=== PATIENT | female | born 1930 | race Caucasian/White ===

== ENCOUNTER 2017-08-01 11:16 | Inpatient (IN) | payer MEDICARE, BC | END 2017-08-04 17:38 | disposition home or self-care (01) | DRG 543 | LOC: D.ER 11:16 → D.MS 18:52 | PROVIDERS: ADMIT Emergency Medicine | DX: M48.58XA Collapsed vertebra, not elsewhere classified, sacral and sacrococcygeal region, initial encounter for fracture (principal); G24.09 Other drug induced dystonia; R53.1 Weakness; M54.16 Radiculopathy, lumbar region; M81.0 Age-related osteoporosis without current pathological fracture; T45.0X5A Adverse effect of antiallergic and antiemetic drugs, initial encounter; M54.31 Sciatica, right side; X58.XXXA Exposure to other specified factors, initial encounter; Z90.2 Acquired absence of lung [part of] ==

== ENCOUNTER 2019-02-09 20:51 | Inpatient (IN) | payer MEDICARE, BC ==
[~2019-02-09] VITALS: Ht 154.9 cm; Wt 54.5 kg
[~2019-02-09 20:51] MED LIST: ASPIRIN 81 MG E81 MG PO; CALCI-CHEW1 TAB.CHEW PO; CALTRATE+D3 PL1 EACH PO; LISINOPRIL10 MG PO; MAXZIDE-25 MG T1 TAB PO; MIRALAX17 GM PO; MULTIPLE VITAMI1 TA1 PO; OMEGA 3 FISH OI1 CAP PO; PRESERVISION AR1 CAP PO; TYLENOL W/CODEI1 TAB PO
[2019-02-09 21:27] LABS: BASOPHILS 0.4 % (0-2); EOSINOPHILS 3.3 % (0-7); HEMATOCRIT 31.3 % (36.0-48.0); HEMOGLOBIN 10.8 g/dL (12-16); IMMATURE GRANULOCYTES 0.4 % (0-5); LYMPHOCYTES 24.2 % (15-50); MCH 33.3 pg (26.0-34.0); MCHC 34.5 g/dL (31.0-37.0); MCV 96.6 fL (80.0-100.0); MONOCYTES 13.2 % (2-11); NEUTROPHILS 58.5 % (40-80); PLATELET COUNT 153 10x3/uL (130-400); RBC 3.24 10x6/uL (4.00-5.40); RDW 14.8 % (11.5-14.5); WBC 5.1 10x3/uL (4.8-10.8)
[2019-02-09 21:40] LABS: APTT 26.1 SECONDS (22.8-39.4); INR 1.02 (0.85-1.17); PROTIME 12.9 SECONDS (11.6-15.0)
[2019-02-09 21:45] LABS: ALBUMIN 3.1 g/dL (3.4-5.0); ALKALINE PHOSPHATASE 47 U/L (46-116); ALT (SGPT) 21 U/L (10-68); BILIRUBIN - TOTAL 0.39 mg/dL (0.2-1.3); CALC OSMOLALITY 266 mosm/kg (275-300); CALCIUM 8.8 mg/dL (8.5-10.1); CHLORIDE - SERUM 96 mmol/L (98-107); CREATININE - SERUM 0.9 mg/dL (0.6-1.3); GLUCOSE 124 mg/dL (74-106); POTASSIUM - SERUM 4.4 mmol/L (3.5-5.1); PROTEIN - SERUM 6.8 g/dL (6.4-8.2); SODIUM 131 mmol/L (136-145); UREA NITROGEN 22 mg/dL (7-18); eGFR NON AFRICAN AMERICAN 62 mL/min (90-120)
[2019-02-09 21:56] LABS: CKMB 2.2 U/L (0.0-3.6); CREATINE KINASE 108 UL (21-215); MAGNESIUM - SERUM 1.9 mg/dL (1.8-2.4); TROPONIN-I 0.018 ng/mL (0.000-0.060)
[2019-02-09 22:18] VITALS: BP 165/85
[2019-02-10] VITALS (7 sets, daily range): BP systolic 137–160; BP diastolic 67–99; Ht 154.9 cm; Wt 54.5 kg
--- NOTE | 2019-02-10 00:10 | NUR ---
PT TO FLOOR VIA BED AND ER STAFF MEMBER.
--- NOTE | 2019-02-10 07:41 | NUR ---
AM ROUNDING DONE WITH PATIENT BEING NPO UNTIL SEEN PER CARDIOLOGY. DENIES ANY CHEST PAIN OR DISCOMFORT AT THIS TIME. ON HEART MONITOR SHOWING SR, HR 78. ON ROOM AIR. LEFT AC PIV SEEN SALINE LOCK, ORANGE SWAB CAP IN USE. PATIENT HAS A SOFT NECK COLLAR IN PLACE FOR CHRONIC BACK ISSUES.
--- NOTE | 2019-02-10 13:58 | NUR ---
PATIENT IS WANTING TO KNOW WHEN THE DOCTORS WILL BE AROUND. I REMINDED HER THAT THE NURSE PARTS COUNTER SPECIALIST FOR CARDIOLOGY CAME THOUGH. SHE REMEMBERS THIS. AWAITING DR NGUYEN TO MAKE ROUNDS.
--- NOTE | 2019-02-10 16:24 | NUR ---
REFUSES SCD PATIENT IS AMBULATORY TO RESTROOM AND IN ROOM.
--- NOTE | 2019-02-10 19:30 | NUR ---
RECEIVED REPORT, WILL ASSUME CARE OF PT, DENIES ANY NEEDS AT THIS TIME, BED IS LOW, SRX2, CALL LIGHT IN REACH, WILL CONTINUE PLAN OF CARE
--- NOTE | 2019-02-10 20:51 | NUR ---
REFUSED FISH OIL, SAYS SAID WILL TAKE IT AT HOME, WHEN DISCHARGED
--- NOTE | 2019-02-11 00:19 | NUR ---
I have reviewed this patient and I concur with the Shift Assessment completed by the Licensed Practical Nurse today this shift.
--- NOTE | 2019-02-11 01:44 | NUR ---
ANSWER CALL LIGHT, PT REQUESTING ANOTHER BLANKET, PROVIDED
[2019-02-11 04:23] VITALS: BP 154/77
[2019-02-11 04:33] LABS: BASOPHILS 0.6 % (0-2); EOSINOPHILS 5.4 % (0-7); HEMATOCRIT 29.7 % (36.0-48.0); HEMOGLOBIN 10.3 g/dL (12-16); IMMATURE GRANULOCYTES 0.2 % (0-5); LYMPHOCYTES 26.7 % (15-50); MCH 33.4 pg (26.0-34.0); MCHC 34.7 g/dL (31.0-37.0); MCV 96.4 fL (80.0-100.0); MEAN PLATELET VOLUME 10.5 fL (7.4-10.4); MONOCYTES 16.5 % (2-11); NEUTROPHILS 50.6 % (40-80); PLATELET COUNT 159 10x3/uL (130-400); RBC 3.08 10x6/uL (4.00-5.40); WBC 4.8 10x3/uL (4.8-10.8)
[2019-02-11 04:51] LABS: ALBUMIN 2.9 g/dL (3.4-5.0); ANION GAP 8.4 mmol/L (8-16); BILIRUBIN - TOTAL 0.62 mg/dL (0.2-1.3); CALCIUM 8.5 mg/dL (8.5-10.1); CARBON DIOXIDE 30.2 mmol/L (21.0-32.0); CREATININE - SERUM 0.9 mg/dL (0.6-1.3); POTASSIUM - SERUM 4.6 mmol/L (3.5-5.1); PROTEIN - SERUM 6.2 g/dL (6.4-8.2)
--- NOTE | 2019-02-11 07:25 | NUR ---
ALERT AND ORIENTED. TELEMERTY SHOWS SR 83. LEFT AC SL. DENIES ANY NEEDS. HOB UP. CALL LIGHT IN REACH WITH SR UP. WILL MONITOR
[2019-02-11 09:23] VITALS: BP 179/87
[2019-02-11 11:38] VITALS: BP 168/82
[2019-02-11] MEDS ORDERED: TOPROL XL25 MG PO (12:12)
--- NOTE | 2019-02-13 08:50 | MORECARE ---
CASE MANAGEMENT DISCHARGE SUMMARY PATIENT: DENNYS HENRY UNIT: [id number] ADM DATE: 02/10/19 AGE: 89 : 30 SEX: F ROOM/BED: D.2122 AUTHOR: FAWN LOPEZ PHYSICIAN: REFERRING PHYSICIAN: LUIS CARLOS NGUYEN MD DATE OF SERVICE: 02/13/19 Discharge Plan Patient Name: DENNYS HENRY Facility: [facility]:[place] : 1930 Planned Disposition: Home Anticipated Discharge Date: 02/11/19 Discharge Date: 02/11/2019 Expected LOS: 1 Initial Reviewer: [email or web address] Initial Review Date: 02/13/2019 Generated: 02/13/19 9:49 am Patient Name: DENNYS HENRY Page [id number] at 0850 All edits/amendments must be made on the electronic document DICTATION DATE: 02/13/19 0849 TESTER ARMATURE OR FIELDS: ILANA 02/13/19 0849 RPT#: [id number] DC DATE:02/11/19 STATUS: DIS IN [facility] [address] [place] [address] END OF REPORT
== END 2019-02-11 15:28 | disposition home or self-care (01) | DRG 309 ==
LOC: D.ER 20:51 → D.EDHOLD 23:34 → OBSVTIME 23:34 → D.M2 23:38
PROVIDERS: Family Medicine; ADMIT Family Medicine; ATTEND Family Medicine
DX: R00.2 Palpitations (principal); E87.1 Hypo-osmolality and hyponatremia; I20.9 Angina pectoris, unspecified; I10 Essential (primary) hypertension; M81.0 Age-related osteoporosis without current pathological fracture; D64.9 Anemia, unspecified; Z86.73 Personal history of transient ischemic attack (TIA), and cerebral infarction without residual deficits